=== PATIENT | female | born 1980 | race Two or more races ===

== ENCOUNTER 2017-12-14 15:11 | Emergency (ER) | payer MEDICAID ==
[~2017-12-14] VITALS: Ht 172.7 cm; Wt 109.8 kg
[2017-12-14 16:15] VITALS: BP 119/72
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
[2017-12-14] MEDS ORDERED: TYLENOL EXTRA500 MG ORAL (17:50)
[2017-12-14] MEDS ORDERED: Bacitracin Oint UD TOPIC ONE (18:00)
[2017-12-14 18:14] VITALS: BP 119/72
--- NOTE | 2017-12-15 10:58 | Diagnostic Imaging Report ---
Indication: Pain Knee pain/trauma 3 views of the right knee were obtained. Findings: No acute fracture, malalignment, or joint effusion are identified. Joint space is relatively well-maintained. Impression: Negative for acute findings.
== END 2017-12-14 18:14 | disposition home or self-care (01) ==
LOC: EMR 17:29
DX: S80.211A Abrasion, right knee, initial encounter (principal); V09.9XXA Pedestrian injured in unspecified transport accident, initial encounter; Y92.524 Gas station as the place of occurrence of the external cause
CPT/HCPCS: 99283